=== PATIENT | female | born 1975 | race Caucasian/White ===

== ENCOUNTER 2023-12-21 00:09 | Emergency (ER) | payer BC ==
[~2023-12-21] VITALS: Ht 175.3 cm; Wt 119.6 kg
[2023-12-21] MEDS: LIDOcaine 1% W/epiNEPHrine 1:100,000 20ml vial IJ ONE (03:01)
[2023-12-21 03:45] VITALS: BP 126/78; PULSE 83; RESP 14; TEMP 98.6; O2SAT 98
== END 2023-12-21 03:48 | disposition home or self-care (01) ==
LOC: ER 00:10
DX: T16.1XXA Foreign body in right ear, initial encounter (principal); W44.8XXA Other foreign body entering into or through a natural orifice, initial encounter; Y93.89 Activity, other specified; Y92.89 Other specified places as the place of occurrence of the external cause; Y99.8 Other external cause status
CPT/HCPCS: 69200; 99284